=== PATIENT | male | born 1980 | race Caucasian/White ===

== ENCOUNTER 2022-01-20 13:11 | Day surgery (SDC) | payer MEDICAID ==
[2022-01-19 10:49] LABS: COVID AG,FIA SOURCE NASOPHARYNGEAL
[~2022-01-20 13:11] MED LIST: SODIUM CHLORIDE 0.9% 1,000 ML IV ONE; SODIUM CHLORIDE 0.9% 1,000 ML ONE
[2022-01-20] MEDS ORDERED: PROPOFOL 1% 20 ML VIAL IVP ONE (13:12)
== END 2022-01-20 15:30 | disposition home or self-care (01) ==
LOC: SURGERY 13:11
PROVIDERS: ATTEND Internal Medicine Gastroenterology
DX: K29.50 Unspecified chronic gastritis without bleeding (principal); B96.81 Helicobacter pylori [H. pylori] as the cause of diseases classified elsewhere; K21.9 Gastro-esophageal reflux disease without esophagitis; Z20.822 Contact with and (suspected) exposure to COVID-19; Z79.899 Other long term (current) drug therapy; Z98.890 Other specified postprocedural states; Z87.11 Personal history of peptic ulcer disease
CPT/HCPCS: 87426; 43239; C9803; C1769; J2704; J7030